=== PATIENT | male | born 1995 ===

== ENCOUNTER 2023-12-07 17:37 | Emergency (ER) | payer OTHER ==
[2023-12-07] MEDS ORDERED: Sodium Chloride 0.9% 20 ML SDV IV PRN (17:49)
[2023-12-07 18:00] LABS: BASOPHILS ABSOLUTE AUTO 0.05 K/uL (0.00-0.20); BASOPHILS PERCENT AUTO 0.4 % (0.0-1.0); EOSINOPHILS ABSOLUTE AUTO 0.03 K/uL (0.00-0.45); EOSINOPHILS PERCENT AUTO 0.2 % (0.0-6.0); HEMATOCRIT 43.5 % (42.0-52.0); HEMOGLOBIN 14.7 g/dL (14.0-18.0); IMMATURE GRAN ABSOLUTE AUTO 0.03 K/uL (0.00-0.05); IMMATURE GRAN PERCENT AUTO 0.2 % (0.0-0.4); LYMPHOCYTES ABSOLUTE AUTO 2.71 K/uL (1.00-4.80); LYMPHOCYTES PERCENT AUTO 19.2 % (24.0-44.0); MEAN CORPUSCULAR HGB CONC 33.8 g/dL (32.0-36.0); MEAN CORPUSCULAR VOLUME 82.9 fL (83.0-99.0); MEAN PLATELET VOLUME 10.3 fL (9.4-12.4); MONOCYTES ABSOLUTE AUTO 0.96 K/uL (0.00-0.80); MONOCYTES PERCENT AUTO 6.8 % (0.0-8.0); NEUTROPHILS ABSOLUTE AUTO 10.37 K/uL (1.80-7.70); NEUTROPHILS PERCENT AUTO 73.2 % (41.0-71.0); PLATELET COUNT,PLT 207 K/uL (150-400); RED BLOOD CELL COUNT 5.25 M/uL (4.52-5.90); WHITE BLOOD CELL COUNT,WBC 14.15 K/uL (3.9-11.3)
[2023-12-07] MEDS: Ondansetron 4 MG/2 ML SDV ONE (18:00)
[2023-12-07] MEDS: Sodium Chloride 0.9% 1,000 ML IV ONE ×2 (18:03→19:22)
[2023-12-07] MEDS: Ondansetron 4 MG/2 ML SDV IVPUSH ONE (18:03)
[2023-12-07] MEDS: HYDROmorphone 0.5 MG/0.5 ML Syringe IVPUSH ONE (18:18)
[2023-12-07] MEDS: Sodium Chloride 0.9% 2.5 ML Syringe FLUSH PRN (18:19)
[2023-12-07] MEDS: Sodium Chloride 0.9% 10 ML Syringe FLUSH PRN (18:20)
[2023-12-07 18:38] LABS: A/G RATIO 1.4 (0.9-1.6); ALBUMIN 4.4 g/dL (3.4-5.0); BILIRUBIN TOTAL 0.7 mg/dL (0.2-1.0); CALCIUM 9.6 mg/dL (8.5-10.1); CARBON DIOXIDE,CO2 20.8 mmol/L (21.0-32.0); EST CRCL DRUG DOSING (CG) 116.09 mL/min; MAGNESIUM 1.5 mg/dL (1.8-2.4); POTASSIUM,K 3.8 mmol/L (3.5-5.1); PROTEIN TOTAL,TP 7.6 g/dL (6.4-8.2)
[2023-12-07] MEDS: Iopamidol 755 MG/ML 500 ML Multipack Bottle IVPUSH STA (19:03)
[2023-12-07 19:10] LABS: APPEARANCE,URINE CLOUDY; GLUCOSE,URINE NEGATIVE (NEGATIVE); KETONES,URINE >=80 mg/dL (NEGATIVE); LEUKOCYTE ESTERASE,URINE NEGATIVE (NEGATIVE); NITRITE,URINE NEGATIVE (NEGATIVE); OCCULT BLOOD,URINE LARGE (NEGATIVE); PROTEIN,URINE 30 mg/dL (NEGATIVE); UROBILINOGEN,URINE 0.2 EU/dL (<2.0)
[2023-12-07 19:13] LABS: BILIRUBIN,URINE SMALL (NEGATIVE); COLOR,URINE DARK YELLOW
[2023-12-07 19:20] LABS: BACTERIA,URINE FEW (NEGATIVE); CALCIUM OXALATE CRYSTALS,URINE OCCASIONAL (NEGATIVE); EPITHELIAL CELLS,URINE NOT SEEN (NONE-FEW); MUCUS,URINE LIGHT (NONE-MOD); RBC,URINE TOO NUMEROUS TO CT (0-2/HPF); WBC,URINE 0-1 (0-5/HPF)
[2023-12-07] MEDS: Ketorolac 30 MG/ML SDV IVPUSH ONE (19:23)
[2023-12-07 20:21] VITALS: BP 158/92; PULSE 82
== END 2023-12-07 20:21 | disposition home or self-care (01) ==
LOC: MW.ED 17:37
DX: N13.2 Hydronephrosis with renal and ureteral calculous obstruction (principal)
CPT/HCPCS: 36415; 74177; 80053; 81001; 83690; 83735; 85025; 96361; 96374; 96375; 99284; J1170; J1885; J2405; J3490; J7030; Q9967